=== PATIENT | female | born 1955 | race Caucasian/White ===

== ENCOUNTER 2018-01-17 07:17 | Day surgery (SDC) | payer BC, OTHER ==
--- OUTSIDE RECORDS SUMMARY | 2018-01-17 07:19 | XMS REPORT ---
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
--- OUTSIDE RECORDS SUMMARY | 2018-01-17 07:19 | XMS REPORT ---
[...] Medications Results No Known Results Summary Purpose [employer] Submission
--- OUTSIDE RECORDS SUMMARY | 2018-01-17 07:19 | XMS REPORT ---
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, unspecified site Problem Essential (primary) hypertension I10 Active Assessment Encounter for general adult medical Z00.00 Active examination without abnormal findings Assessment Encounter for screening mammogram Z12.31 Active for breast cancer Medications Medication Code Code Instructions Start End Status Dosage System Date Date Zantac 150 [facility] 13904629939 150 MG Orally December 20, Active 1 tablet Maximum BID 2017 Strength Bystolic [facility] 98827771500 10 MG Orally October 28, Active 1 tablet Once a day 2017 Senokot S [facility] 27260004401 8.6-50 MG Orally Active 1 tablet Once a day in the evening as needed Vitamin D-3 [facility] [address] 5000 unit Orally December 20, Active 1 capsule Once a day x 30 2017 days Norvasc [facility] 07956821754 5 MG Orally Once December 20, Active 1 tablet a day 2016 Results No Known Results Summary Purpose [employer] Submission
[2018-01-17] MEDS ORDERED: Ringers Lactate 1,000 ML IV ONE (07:33)
[2018-01-17] MEDS ORDERED: LIDOCAINE 1% W/EPI 1:100,000 MDV 50 ML VIAL ONE ×2 (08:26→11:10)
[2018-01-17] MEDS ORDERED: PROPOFOL 200 MG/20 ML VIAL IV ONE (10:03)
[2018-01-17] MEDS ORDERED: FENTANYL CITR 100 MCG/2 ML ONE (10:03)
[2018-01-17] MEDS ORDERED: LIDOCAINE 2% MPF 5 ML VIAL ONE (10:04)
[2018-01-17] MEDS ORDERED: MIDAZOLAM HCL 2 MG/2 ML INJ ONE (10:04)
[2018-01-17] MEDS ORDERED: SCOPOLAMINE HYDROBROMIDE PATCH TD ONE (10:10)
[2018-01-17] MEDS ORDERED: NA CHLORIDE 0.9% 1,000 ML ONE (11:10)
--- NOTE | 2018-02-13 19:37 | OP ---
Date of Procedure: 01/17/2018 Surgeon: Katherine Ivan MD Postoperative Diagnoses: Thickened endometrium, history of postmenopausal bleeding. Postoperative Diagnoses: Endometrial polyp and postmenopausal bleeding. Procedures Performed: Hysteroscopy, polypectomy, and dilatation and curettage. Anesthesia: MAC plus paracervical block. Specimens: Endometrial curettings and polyp. Complications: No complications. Drains: No drains. Condition: Stable. Description Of Procedure: After informed consent was verified, the patient was taken back to the OR. She was placed in a supine fashion on the operating table. After MAC was given, she was placed in a dorsal lithotomy position. Pelvic exam was performed. Uterus was small. Cervix was exposed with a bivalve speculum. Anterior lip injected with 1% lidocaine mixed with 1:100,000 epinephrine 10 cc w as given here. Then, at 4 and 8 o'clock positions, 5 cc each was given for a paracervical block. Pr ep x3 with Betadine was done. Anterior lip was grasped with 2 Allis clamps. Direct hysteroscopy wit h 30-degree lens and a SlimLine hysteroscope with normal saline was done. The cervical canal was tra versed and uterine cavity was entered directly. There was a polyp arising from the posterior fundus. Both tubal ostia were visualized. Endometrium appeared to be thin and without irregularities. No other intracavitary lesions were seen. The scope was removed. Operative sheath was placed after rem oving the diagnostic sheath and then scissors were placed through here. The scope was reintroduced i nto the uterine cavity. The base of the polyp was cut with the help of scissors and retrieved with t he graspers. Then, D and C was performed with a #1 endometrial curette. There was scant sample, how ever, all these were handed off for permanent pathology. The patient was recovered from anesthesia a fter all the instrument, needle, and sponge counts were done and were correct. She tolerated the pro cedure well. Estimated Blood Loss: Minimal. BRII/SONL Voice ID: [id number] Report ID: [id number]
== END 2018-01-17 14:50 | disposition home or self-care (01) ==
LOC: OR 07:17
PROVIDERS: ATTEND Obstetrics & Gynecology
PROC: 0UDB7ZX Extraction of Endometrium, Via Natural or Artificial Opening, Diagnostic (ICD-10-PCS; 2018-01-17)
PROC: 0UB98ZX Excision of Uterus, Via Natural or Artificial Opening Endoscopic, Diagnostic (ICD-10-PCS; principal; 2018-01-17 09:30)
DX: N84.0 Polyp of corpus uteri (principal); N85.00 Endometrial hyperplasia, unspecified; N81.2 Incomplete uterovaginal prolapse; I10 Essential (primary) hypertension; R12 Heartburn; Z88.2 Allergy status to sulfonamides; Z88.6 Allergy status to analgesic agent; Z90.49 Acquired absence of other specified parts of digestive tract; Z82.49 Family history of ischemic heart disease and other diseases of the circulatory system; Z82.3 Family history of stroke
CPT/HCPCS: 88305; J2250; J3010; J7030

== ENCOUNTER 2018-04-13 06:13 | Day surgery (SDC) | payer BC ==
[2018-04-11 16:51] LABS: Urine Appearance CLEAR; Urine Bilirubin NEGATIVE (NEG); Urine Blood NEGATIVE (NEG); Urine Color YELLOW; Urine Glucose NEGATIVE (NEG); Urine Protein NEGATIVE (NEG); Urine Specific Gravity >=1.030 (1.005-1.030); Urine Urobilinogen 0.2 mg/dL (0.2-1.0)
[2018-04-11 16:53] LABS: Urine Microscopic Reflex NO UMIC
[2018-04-11 17:09] LABS: Absolute Lymphocytes (CBC) 3.3 K/uL (0.7-4.9); Absolute Neutrophil 5.9 K/uL (1.8-8.0); Basophils % 1.1 % (0-1.3); Eosinophils % 3.4 % (0-4.4); Hematocrit 43.2 % (36.0-45.0); Lymphocytes % 31.1 % (15.3-44.8); MCH 32.5 pg (27.0-35.0); MCV 95.5 fL (80-100); MPV 7.9 fL (7.6-11.3); Monocytes % 9.2 % (3.3-12.3); Potassium 3.4 mmol/L (3.5-5.1); RBC Red Blood Cell Count 4.52 M/uL (3.86-4.86)
[2018-04-11 17:47] LABS: Protime INR 1.02
--- OUTSIDE RECORDS SUMMARY | 2018-04-13 06:16 | XMS REPORT ---
[...] Medications Results No Known Results Summary Purpose [employer] Submission
--- OUTSIDE RECORDS SUMMARY | 2018-04-13 06:16 | XMS REPORT ---
[...] Status Dosage System Date Date Zantac [address] [facility] [id number] 150 MG Orally December 20, Active 1 tablet Maximum BID 2017 Strength Bystolic [facility] 18501794266 10 MG Orally October 28, Active 1 tablet Once a day [address] Senokot [address] [facility] 56958981204 8.6-50 MG Orally Active 1 tablet Once a day in the evening as needed Vitamin D-[address] [facility] [address] 5000 unit Orally December 20, Active 1 capsule Once a day x 30 2017 days Norvasc [facility] 45426956284 5 MG Orally Once December 20, Active 1 tablet a day 2016 Results No Known Results Summary Purpose [employer] Submission
--- OUTSIDE RECORDS SUMMARY | 2018-04-13 06:16 | XMS REPORT ---
[...] Medications Results No Known Results Summary Purpose [employer] Submission
[2018-04-13] MEDS ORDERED: ROCURONIUM 50 MG/5 ML VIAL IV ONE (06:58)
[2018-04-13] MEDS ORDERED: FENTANYL CITR 250 MCG/5 ML ONE (06:58)
[2018-04-13] MEDS ORDERED: PROPOFOL 200 MG/20 ML VIAL IV ONE (06:58)
[2018-04-13] MEDS ORDERED: MIDAZOLAM HCL 2 MG/2 ML INJ ONE (06:58)
[2018-04-13] MEDS ORDERED: LIDOCAINE 1% MPF 2 ML AMPULE ONE (06:59)
[2018-04-13] MEDS ORDERED: NA CHLORIDE 0.9% 1,000 ML ONE (06:59)
[2018-04-13] MEDS ORDERED: ONDANSETRON HCL 40 MG/20 ML VIAL ONE (06:59)
[2018-04-13] MEDS ORDERED: Ringers Lactate 1,000 ML IV ONE ×3 (07:04→18:07)
[2018-04-13] MEDS ORDERED: HEPARIN 5000 UNIT/ML 1 ML VIAL ONE (07:04)
[2018-04-13] MEDS ORDERED: CEFAZOLIN/SWI 1gm 1 GM/10 ML SYR ONE (07:04)
[2018-04-13] MEDS ORDERED: DEXAMETHASONE 10 MG/ML VIAL ONE (07:07)
[2018-04-13] MEDS ORDERED: NA CHLORIDE 0.9% 100 ML IV ONE (07:23)
[2018-04-13] MEDS ORDERED: EPHEDRINE SULF 50 MG/ML SYR ONE (08:29)
[2018-04-13] MEDS ORDERED: GLYCOPYRROLATE 0.2 MG/ML SYR ONE (08:52)
[2018-04-13] MEDS: VASOPRESSIN 20 UNIT/ML VIAL ONE ×2 (10:23→11:00)
[2018-04-13] MEDS ORDERED: CEFAZOLIN SODIUM 1 GM/VIAL ONE ×2 (11:04)
[2018-04-13] MEDS ORDERED: FENTANYL CITR 100 MCG/2 ML ONE (11:28)
[2018-04-13] MEDS: PROMETHAZINE 25 MG/ML VIAL ONE ×3 (12:37→12:57)
[2018-04-13] MEDS ORDERED: MEPERIDINE HCL 50 MG/ML AMP IM PRN (12:58)
[2018-04-13] MEDS ORDERED: HYDROCODONE/APAP 5/325 MG TAB PO PRN ×2 (12:58→12:59)
[2018-04-13] MEDS ORDERED: PROMETHAZINE 25 MG/ML VIAL IV PRN (12:59)
[2018-04-13] MEDS ORDERED: IBUPROFEN 200 MG TAB PO PRN (13:00)
[2018-04-13] MEDS ORDERED: PROMETHAZINE 25 MG TABLET PO PRN (13:00)
[2018-04-13] MEDS ORDERED: SCOPOLAMINE HYDROBROMIDE PATCH TD ONE (13:14)
[2018-04-13] MEDS ORDERED: DOCUSATE NA 100 MG CAP PO ONE (20:53)
[2018-04-13] MEDS: DOCUSATE NA 100 MG CAP PO SCH (21:00)
--- NOTE | 2018-04-14 04:22 | OP ---
Date of Procedure: 04/13/2018 Surgeon: Katherine Ivan MD Laboratory Technical Specialist: Anca Elizabeth. Preoperative Diagnoses: History of recurrent postmenopausal bleeding, endometrial thickening, incomp lete uterovaginal prolapse, rectocele, occult VERO, and cystocele (anterior wall prolapse and posterio r wall prolapse with uterine prolapse being the main defect). Postoperative Diagnoses: Incomplete uterovaginal prolapse, recurrent postmenopausal bleeding, endome trial thickening, distal rectocele and perineal body weakness. Procedures Performed: 1.Total laparoscopic hysterectomy, bilateral salpingo-oophorectomy. 2.Uterosacral ligament suspension, colpopexy, bilateral, posterior enterocele repair, cystoscopy, an d vaginal posterior wall repair with perineorrhaphy. Anesthesia: General endotracheal. Estimated Blood Loss: 100. Urine Output: 300. Specimens: Uterus, bilateral tubes and ovaries. Complications: None. Drains: Coates catheters. Condition: Stable. Findings: POP-Q as follows -1, -1, -2, 4 moderate and 7, -1, -1 and -3 prior to the prolapse correct ion after the apical suspension was performed then the POP-Q was -3, - 3, -6, 4 moderate and 6 cm -1, -1 and nonapplicable. There was a significant posterior wall defect, and on rectovaginal exam, ther e was a midline distal defect after the apical reconstruction was done. On cystoscopy, bilateral ure ters were patent with streams of urine flowing easily from both orifices right after the suspension w as done. After the anterior wall was suspended along with the uterosacral colpopexy, then there was no evidence of any drop in the anterior wall as well as any hypermobility of the urethra. The patien t did not have any overt symptoms of stress urinary incontinence, and her Valsalva cough test during filling cystometry was negative. There was no leak demonstrable at any a the fill levels with sensat ions, and the maximal urethral closure pressure were noted to be 59 cm of water when the urodynamics were done measuring the urethral pressure profile. However, since the patient was suspected to have anterior wall prolapse, I consented her for the sling which after fixation in the anterior wall corre ction did not seem like it would be a problem, so I did not think that in a patient that did not have complaints of stress incontinence that I should to prophylactic sling just because of the lower clos ure pressure. Description Of Procedure: After informed consent was verified, the patient was taken back to the OR. She had recurrent complaints of prolapse. She had a rectocele repair in 2014 where just her wood heel flap inserter ior wall was repaired. She was originally referred to me for this complaint, and she has been noting a bulge in the last 9 months prior to her referral and the size of the prolapse appeared to be like a large olive. 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 Rodriguez. At the time of the surgical fixation, she did do well without any prob lems, and on further evaluation, her defect was noted to be mostly apical at this time besides the an terior and posterior bulges. So, she was consented for an apical suspension procedure with anterior and posterior repairs as needed and a mid urethral sling for occult stress urinary incontinence based on her maximal urethral closure pressure, the fact that there was an anterior wall prolapse as well. However, today, as dictated above, since there was no problem after the apical suspension on the an terior wall or the urethra, I decided to skip the sling. After she was placed in a supine fashion on the operating table, general anesthesia was given. She w as placed in dorsal lithotomy position using Miles stirrups. Pelvic exam performed. POP-Q confirmed as above. Uterus small. No adnexal masses. Abdomen, vulva, vagina, and perineum were prepped and draped in a sterile fashion. The vaginal area was also draped for vaginal surgery at the end. Coates was placed to drain the bladder and attached to cysto tubing to an LR bag, emptied 300 for retrograd e filling. A large VCare was fixed into place, and this area was draped. A 1 cm infraumbilical inci marquis was made. The fascia was incised and tagged with 0 Vicryl sutures. The peritoneum was entered sharply. Peritoneal cavity was surveyed at the site of entry, and the upper abdominal surface was co mpletely unremarkable. Liver and gallbladder were absent. Omental surface was unremarkable. Uterus small. A 10 mm suprapubic, 5 mm left lower quadrant, 5 mm right lower quadrant. Ports were placed under direct vision throughout the pelvic cavity showed ureters without any distortion in its course. Uterosacral ligaments lacks but still in the distal part but they were attached to the uterus as we ll as the top of the vagina. The ureteric tunnels were identified on both sides in between the natur al course of the uterosacral ligament and the ureteric tunnel. I made an incision with a monopolar n eedle to open up the peritoneum on both sides carefully after dissecting under the peritoneum to allo w the ureter to remain lateral and not be pulled. Then, the sutures were taken for the uterosacral s uspension. Similar dissection was performed on the opposite side as well, on both sides. Then, I wa s able to identify the posterior enterocele at the level of the posterior vaginal cuff since the rect ovaginal septum did not appear to be attached to the posterior apex naturally most likely due to the defect in the posterior wall as well. Once the enterocele was seen here, plan was to dissect the ent erocele and repair it and that include the proximal part of the rectovaginal septum with the anterior precervical fascia so that this would be closed to prevent an apical enterocele and then try to re-a ttach the proximal part of the rectovaginal septum to the vaginal apex. Utero-ovarian ligament, round ligament, mesosalpinx tube were all taken down with the LigaSure. Ante rior peritoneum was opened up raising the bladder flap all the way to the opposite round ligament on the right side. The posterior peritoneum was taken down medially close to the uterus all the way to the level of the posterior VCare cup. There was no rectovaginal septum here. So, as soon as I went down here, the cup was very visible. Broad ligament was skeletonized, and the vessels were isolated as well, and the window was made in th e medial aspect. Then, on the opposite side, did the same dissection taking down the utero-ovarian l igament, mesosalpinx tube, round ligament and connecting the bladder flap anteriorly and posteriorly taking down the peritoneum all the way to the level of the natural attachment of the uterosacral liga ment. Once this peritoneum was dissected properly, then a medial window was made through the vessels . These were taken down with the help of bipolar basket tip and the LigaSure. Cardinal ligaments di d not appear to be too thick; however, this is thicker on the right side than on the left side. So, these were taken down as soon as possible. Then, on the opposite side, similar dissection was perfor med taking down the vessels, uterine artery/vein and the ascending branches of these respective vesse ls and the remnants of the cardinal ligament taken down anteriorly. Once all this was done, the vesi covaginal space was opened up with the help of monopolar hook blade exposing the precervical fascia, and the bladder was dissected down simply all the way to 3.5 cm from distal to the VCare cup. On the anterior wall, there was 4 cm of space for me to close the cuff and suture the precervical fascia to the uterosacral ligaments. Once this was well exposed and the bladder was taken down adequately in the center and after the sides being careful not to get to the point where the ureters were diving in to the bladder, then a colpotomy was performed with a monopolar hook blade in a circumferential fashi on. Specimen detached and pulled out through the vagina. Tube and ovary were taken down together on the left side taking down the IP ligament as well as the b road ligament and the mesosalpinx. On the right side, the ovary was removed separately, and the tube removed separately. There was excellent hemostasis. At this point, 2-0 Vicryl sutures were placed at both angles and tied outside the angle. Then, 2 [id number]-upvgeo were placed immediately medial t o these. I took down the peritoneum of the posterior wall at least 3 cm to expose the posterior vagi nal wall. Here I was able to identify that the rectovaginal septum was not extending all the way to the apex and that there was a defect. So, plan was to close the vaginal cuff in 2 layers. The first layer was to appose the vaginal epithelial mucosa. Second was to use the uterosacral bites to bring the posterior rectovaginal septum and the anterior precervical fascia together thereby repairing the posterior wall, posterior enterocele as well as doing the suspension. After the stitches were done on the medial aspect to the lateral angle stitches, these sutures were held through each lateral port site and the angle sutures were cut at their tip short. Then, the uterosacral stitches were taken w ith the help of 0 PDS in a continuous running fashion starting at about 2 to 3 cm inferior to the loc ation of the ischial spine. Lateral to medial sutures were taken x3 in order for me to catch the pete rosacral ligament and then this was driven through the rectovaginal septum in the middle third of the vaginal wall without actually entering the vaginal mucosa itself, however, making sure that there wa s here. Once this was done, then I went on the opposite side. Lateral to medial 3 stitch es were taken then through the rectovaginal septum. After the posterior bite was taken on the fascia , the anterior bite was taken on the precervical fascia. A nice thick bite imbricating the initial c losure of the vaginal epithelium so that this would bring the anterior and posterior fascial layers t ogether. Once these were done, these were just held on clamps, both sutures. Then, a central suture with a 0 Vicryl was placed in a simple fashion to close the middle of the vaginal cuff. Once this w as tied down, then the 2 uterosacral sutures were tied down. Although there was bunching of tissue w hich was the uterosacral, it still appeared to have a good effect in reattaching this to the apex. O nce this was done, it was hemostatic and had good suspension. Then, ureters were checked. There was no evidence of electrical, mechanical, or thermal injury to them. On visualization through the lapa roscope, they both were motile in a normal fashion. Gloves were changed. Cystoscopy was performed after removing the vaginal occluder sponge in a glove as well as the Coates. Both ureteric orifices had strong jets of urine from them, and there were mult iple jets of urine once they got started. There was no evidence of any injury to the bladder or fore ign body. The scope was removed. Coates was replaced. The procedure was completed. Thorough irrigation and suction were performed in the peritoneal cavity . Trocars were removed under direct vision. There was a stitch placed on the epiploica of the sigmo id colon with a 3-0 Vicryl stitch and the Donaldo-Louise was used to hold this stitch retracting the colon through the left upper quadrant. Now, this suture was taken down examined. No urszula dence of any ticks or bleeding here. All the trocars were removed. Fascia at the umbilicus closed w ith 0 Vicryl in [id number]-[id number] fashion, simple closure at the suprapubic site on the fascia. All th e skin incisions closed with the help of 4-0 Monocryls in an interrupted fashion. After changing the gloves, examining the vaginal canal, there was no anterior defect. The POP-Q was -3, -3, -6. No evidence of any urethral hypermobility when I tested with the catheter in there, and Valsalva was performed with the assistance of the Anesthesia, so I just decided that since there was no significant hypermobility of the wall and she was neither symptomatic nor demonstrated a Valsalva leak there was no need for mid urethral sling at this time. Dilute vasopressin was injected in the area of the perineal body, then the posterior vaginal wall lat erally as well up to 3 cm from the vestibule. There was no enterocele on the top. There was no othe r defect that I could find. So, the vaginal mucosa and perineum skin was incised with a #15 blade tr iangular skin incision, and this was removed. Posterior compartment was accessed. There was scar fr om the previous surgery. This was taken down systematically without any blunt dissection sharply wit h the Metzenbaum scissors and then went all the way up to lie 4 cm. The underlying tissues were diss ected and the lateral scarred vaginal epithelium was trimmed out and removed. The lateral aspects of the rectovaginal septum that were underlying the posterior wall they were brought together with 3 in terrupted 2-0 Vicryl sutures. The perineum was then closed with the help of 2 more 2-0 sutures bring ing the perineal body together. After the epithelial edges were trimmed, then 2-0 Vicryl was used to close the vaginal epithelium in a continuous running locked fashion until I came outside of the vest ibule. Then in a subcutaneous fashion, it was taken down along the deep transverse perinei muscles o n both sides and making this bulkier. Once this was done and tied inside, there is no need for any o ther further suturing. So, rectal exam was performed. No evidence of any foreign body here or the s uture trauma. Gloves were changed. Coates was left in place. No packing was placed. Instrument, ne edle, and sponge counts x3 were correct at the end of the case. The patient tolerated the procedure well. She was admitted for overnight observation. She will be home tomorrow if she passes her voidi ng trial. SORIN Voice ID: [id number] Report ID: [id number]
[2018-04-14 05:00] LABS: Absolute Lymphocytes (CBC) 1.4 K/uL (0.7-4.9); Absolute Monocytes 1.2 K/uL (0.1-1.3); Absolute Neutrophil 11.9 K/uL (1.8-8.0); Basophils % 0.1 % (0-1.3); Hematocrit 37.3 % (36.0-45.0); Lymphocytes % 9.6 % (15.3-44.8); MCH 32.8 pg (27.0-35.0); MPV 7.7 fL (7.6-11.3); Monocytes % 8.4 % (3.3-12.3); RBC Red Blood Cell Count 3.93 M/uL (3.86-4.86)
[2018-04-14] MEDS: DOCUSATE NA 100 MG CAP PO SCH (08:57)
[2018-04-14] MEDS ORDERED: AMLODIPINE 5 MG TAB PO SCH (09:00)
== END 2018-04-14 10:00 | disposition home or self-care (01) ==
LOC: OR 06:13 → 2ND-WC 12:30 → OR 04-14 10:00
PROVIDERS: ATTEND Obstetrics & Gynecology
PROC: 0UT24ZZ Resection of Bilateral Ovaries, Percutaneous Endoscopic Approach (ICD-10-PCS; 2018-04-13)
PROC: 0UT74ZZ Resection of Bilateral Fallopian Tubes, Percutaneous Endoscopic Approach (ICD-10-PCS; 2018-04-13)
PROC: 0USG7ZZ Reposition Vagina, Via Natural or Artificial Opening (ICD-10-PCS; 2018-04-13)
PROC: 0JQC0ZZ Repair Pelvic Region Subcutaneous Tissue and Fascia, Open Approach (ICD-10-PCS; 2018-04-13)
PROC: 0WQNXZZ Repair Female Perineum, External Approach (ICD-10-PCS; 2018-04-13)
PROC: 0UT94ZZ Resection of Uterus, Percutaneous Endoscopic Approach (ICD-10-PCS; principal; 2018-04-13 08:00)
DX: N81.2 Incomplete uterovaginal prolapse (principal); N95.0 Postmenopausal bleeding; R93.8 Abnormal findings on diagnostic imaging of other specified body structures; I10 Essential (primary) hypertension; K21.9 Gastro-esophageal reflux disease without esophagitis; Z88.2 Allergy status to sulfonamides; Z88.6 Allergy status to analgesic agent; Z90.49 Acquired absence of other specified parts of digestive tract; Z82.3 Family history of stroke; Z82.49 Family history of ischemic heart disease and other diseases of the circulatory system
CPT/HCPCS: 36415; 80048; 81003; 85025; 85610; 85730; 86850; 86900; 86901; 88307; J0690; J1100; J1644; J2001; J2175; J2250; J2405; J2550; J3010; J7030